=== PATIENT | female | born 1990 | race Hispanic/Latino ===

== ENCOUNTER 2017-01-04 19:52 | Emergency (ER) | payer OTHER ==
--- NOTE | 2017-01-04 20:13 | ED PDOC ---
"Arrival/HPI - General Chief Complaint: High Blood Sugar Time Seen by Provider: 01/04/17 20:03 Historian: Patient - History of Present Illness Narrative History of Present Illness (Text): 01/04/17 20:12 26 y/o female, pmh including dyspepsia/ovarian cyst, nkda, c/o abdominal pain with diarrhea x 2 days. Aching and cramping pain, burning sensation, admits had several episodes of watery diarrhea, no recent antibiotic use for the past 6 weeks, no headache or night sweat, no dizziness, no fatigue or lethargic, no rash, no other medical or psychological complaints. Past Medical History - Provider Review Nursing Documentation Reviewed: Yes - Infectious Disease Hx of Infectious Diseases: None - Reproductive Menopause: Yes - Cardiac Hx Hypertension: Yes - Pulmonary Hx Chronic Obstructive Pulmonary Disease (COPD): Yes - Endocrine/Metabolic Hx Diabetes Mellitus Type 1: Yes - Psychiatric Hx Emotional Abuse: No Hx Substance Use: No - Anesthesia Hx Anesthesia: No Family/Social History - Physician Review Nursing Documentation Reviewed: Yes Family/Social History: Unknown Family HX Smoking Status: Former Smoker Hx Alcohol Use: No Hx Substance Use: No Allergies/Home Meds Allergies/Adverse Reactions: Allergies No Known Allergies Allergy (Verified 09/19/16 11:42) Review of Systems - Review of Systems Constitutional: absent: Fatigue, Fevers Eyes: absent: Vision Changes ENT: absent: Hearing Changes Respiratory: absent: SOB, Cough Cardiovascular: absent: Chest Pain Gastrointestinal: Abdominal Pain, Diarrhea. absent: Constipation, Nausea, Vomiting Skin: absent: Rash, Pruritis, Skin Lesions Neurological: absent: Headache Physical Exam Vital Signs Reviewed: Yes Vital Signs Temp Pulse Resp BP Pulse Ox 01/04/17 21:19 98.1 F 75 16 102/61 100 01/04/17 19:55 98.7 F 78 18 113/75 98 Temperature: Afebrile Blood Pressure: Normal Pulse: Regular Respiratory Rate: Normal Appearance: Positive for: Well-Appearing, Non-Toxic, Comfortable Pain Distress: Mild Mental Status: Positive for: Alert and Oriented X 3 Finger Stick Blood Glucose: 500 - Systems Exam Head: Present: Atraumatic, Normocephalic Pupils: Present: PERRL Extroacular Muscles: Present: EOMI Conjunctiva: Present: Normal Mouth: Present: Moist Mucous Membranes Neck: Present: Normal Range of Motion Respiratory/Chest: Present: Clear to Auscultation, Good Air Exchange. No: Respiratory Distress, Accessory Muscle Use Cardiovascular: Present: Regular Rate and Rhythm, Normal S1, S2. No: Murmurs Abdomen: Present: Tenderness (epigastric and lower abdomen). No: Distention, Normal Bowel Sounds (hyperactive bowel sound), Peritoneal Signs, Rebound, Guarding Back: Present: Normal Inspection Upper Extremity: Present: Normal Inspection. No: Cyanosis, Edema Lower Extremity: Present: Normal Inspection. No: Edema Neurological: Present: GCS=15, Speech Normal Skin: Present: Warm, Dry, Normal Color. No: Rashes Psychiatric: Present: Alert, Oriented x 3, Normal Insight, Normal Concentration Medical Decision Making ED Course and Treatment: 01/04/17 20:13 -labs/ua -IVF/pepcid -CT abdomen and pelvis -Observe and reassess 01/04/17 22:50 -Labs show wbc 13.0 -UA show +UTI -CT abdomen and pelvis show colitis vs. underdistension with cholelithiasis, clinically concerning about colitis as she has elevation of wbc with abdominal tenderness. Negative galeano signs/ -Ciprofloxacin and flagyl ordered. I discussed with the patient about the side effect of fluoroquinolones will causes achilles tendon rupture, advised avoid gym/exercise, pt. verbally expressed understanding the risk and agreed to take the ciprofloxacin. -Discharge home with ciprofloxacin, flagyl, pepcid, stay hydrated, follow up with your own pmd and GI within 2 days, BRAT diet, non-dairy diet for 7 days, return to the ER for any new or worsening signs or symptoms. - Lab Interpretations Lab Results: 01/04/17 20:26 01/04/17 20:26 Lab Results 01/04/17 20:26: Sodium 140, Potassium 4.0, Chloride 100, Carbon Dioxide 27, Anion Gap 17, BUN 14, Creatinine 0.7, Est GFR ( Amer) > 60, Est GFR (Non- Af Amer) > 60, Random Glucose 83, Calcium 9.6, Total Bilirubin 1.2, AST 29, ALT 32, Alkaline Phosphatase 63, Total Protein 8.9 H, Albumin 4.9 H, Globulin 4.0, Albumin/Globulin Ratio 1.2, Lipase 58 01/04/17 20:26: Urine Color Yellow, Urine Appearance Clear, Urine pH 7.5, Ur Specific [place] 1.015, Urine Protein Trace H, Urine Glucose (UA) Negative, Urine Ketones Negative, Urine Blood Negative, Urine Nitrate Negative, Urine Bilirubin Negative, Urine Urobilinogen 1.0 H, Ur Leukocyte Esterase Trace H, Urine RBC Negative, Urine WBC 0 - 2, Ur Epithelial Cells 1 - 3, Urine Bacteria Few 01/04/17 20:26: WBC 13.0 H, RBC 4.82, Hgb 14.9, Hct 44.8, MCV 92.9, MCH 30.9, MCHC 33.3, RDW 13.2, Plt Count 347, MPV 10.7, Gran % 76.5 H, Lymph % (Auto) 17.1 L, [place] % (Auto) 6.0, Eos % (Auto) 0.2 L, Baso % (Auto) 0.2, Gran # 9.95 H , Lymph # 2.2, [place] # 0.8 H, Eos # 0.0, Baso # 0.03 I have reviewed the lab results: Yes Interpretation: Abnormal lab values (wbc 13.0 and UA show +UTI) - RAD Interpretation Radiology Orders: 01/04/17 20:55 ABD & PELVIS IV CONTRAST ONLY [CT] Stat FINDINGS: Lower thorax: No acute findings. ABDOMEN: Liver: Unremarkable. No mass. Gallbladder and bile ducts: Contracted gallbladder with probable stones. No ductal dilation. Pancreas: No ductal dilation. No mass. Spleen: No splenomegaly. Adrenals: No mass. Kidneys and ureters: No mass. No hydronephrosis. Stomach and bowel: Mild mural thickening vs underdistention of descending, sigmoid colon. No associated inflammatory stranding. No obstruction. Appendix: Normal caliber. No definite inflammation. PELVIS: Bladder: Unremarkable. ARI DOUGLASICA | Final Radiology Report CONFIDENTIALITY STATEMENT This report is intended only for use by the referring physician, and only in accordance with law. If you received this in error, call [phone]. Page 2 of 2 Reproductive: Small ovarian follicles. ABDOMEN and PELVIS: Intraperitoneal space: Trace free fluid within pelvis. No free air. Bones/joints: No acute fracture. Soft tissues: Unremarkable. Vasculature: Unremarkable. No aneurysm. Lymph nodes: No pathologically enlarged lymph nodes. IMPRESSION: 1. Mild colitis vs underdistention. Favor underdistention. Clinical correlation is needed. 2. Probable cholelithiasis. Consider ultrasound. 3. Incidental/non-acute findings are described above. Thank you for allowing us to participate in the care of your patient. Dictated and Authenticated by: Faizan Muñoz MD 01/04/2017 10:45 PM Eastern Time ([place] & [place]) [employer]: Radiologist - Medication Orders Current Medication Orders: Discontinued Medications Famotidine (Pepcid) 20 mg IVP STAT STA Stop: 01/04/17 20:56 Last Admin: 01/04/17 21:03 Dose: 20 mg Sodium Chloride (Sodium Chloride 0.9%) 1,000 mls @ 999 mls/hr IV .Q1H1M STA Stop: 01/04/17 21:55 Last Admin: 01/04/17 21:04 Dose: 999 mls/hr Iohexol (Omnipaque 350 100 Ml) Confirm Administered Dose 350 mg .ROUTE .STK-MED ONE Stop: 01/04/17 21:26 - PA / FILM RENTAL CLERK / Resident Statement / has reviewed & agrees with the documentation as recorded. Disposition/Present on Arrival - Present on Arrival Any Indicators Present on Arrival: No History of DVT/PE: No History of Uncontrolled Diabetes: No Urinary Catheter: No History of Decub. Ulcer: No History Surgical Site Infection Following: None - Disposition Have Diagnosis and Disposition been Completed?: Yes Diagnosis: UTI (urinary tract infection), Colitis Disposition: HOME/ ROUTINE Disposition Time: 22:54 Patient Plan: Discharge Patient Problems: Current Active Problems Problem Status Onset UTI (urinary tract infection) Acute Condition: IMPROVED Additional Instructions: Discharge home with ciprofloxacin, flagyl, pepcid, stay hydrated, follow up with your own pmd and GI within 2 days, BRAT diet, non-dairy diet for 7 days, return to the ER for any new or worsening signs or symptoms. Prescriptions: Ciprofloxacin [Cipro] 500 mg PO BID #16 tab Famotidine [Pepcid] 20 mg PO BID #20 tab Metronidazole [Flagyl] 500 mg PO TID #30 tab Referrals: Vanessa Wellington MD [Primary Care Provider] - Follow up with primary Shmuel Singletary MD [Medical Doctor] - Follow up with primary Forms: WORK NOTE"
[2017-01-04 20:17] VITALS: BMI 22.6
[2017-01-04 20:47] LABS: ADD MANUAL DIFF? NO
[2017-01-04 20:50] LABS: BASO # 0.03 K/mm3 (0.0-2.0); BASO % 0.2 % (0.0-3.0); EOS % 0.2 % (1.5-5.0); GRAN # 9.95 (1.4-6.5); GRAN % 76.5 % (50.0-68.0); HEMATOCRIT 44.8 % (36.0-48.0); LYMPH # 2.2 (1.2-3.4); LYMPH % 17.1 % (22.0-35.0); MEAN CELL VOLUME 92.9 fL (80.0-105.0); MEAN CORPUSCULAR HEMOGLOBIN 30.9 pg (25.0-35.0); MEAN CORPUSCULAR HGB CONC 33.3 g/dl (31.0-37.0); MEAN PLATELET VOLUME 10.7 fl (7.0-11.0); MONO # 0.8 (0.1-0.6); PH,URINE 7.5 (4.7-8.0); PLATELET COUNT 347 10^3/uL (120.0-450.0); RED CELL DISTRIBUTION WIDTH 13.2 % (11.5-14.5); URINE BILIRUBIN NEGATIVE (NEGATIVE); URINE BLOOD NEGATIVE (NEGATIVE); URINE GLUCOSE (UA) NEGATIVE (NEGATIVE); URINE KETONE NEGATIVE (NEGATIVE); URINE LEUKOCYTE ESTERASE TRACE Leu/uL (NEGATIVE); URINE PROTEIN TRACE mg/dL (<30 mg/dL)
[2017-01-04] MEDS ORDERED: Sodium Chloride 0.9% 1,000 ML IV STA (20:55)
[2017-01-04 20:57] LABS: URINE APPEARANCE CLEAR (CLEAR); URINE COLOR YELLOW (YELLOW)
[2017-01-04 21:01] LABS: ALB/GLOB RATIO 1.2 (1.1-1.8); ALKALINE PHOSPHATASE 63 U/L (38-133); ALT/SGPT 32 U/L (7-56); AST/SGOT 29 U/L (15-39); BILIRUBIN,TOTAL 1.2 mg/dL (0.2-1.3); BLOOD UREA NITROGEN 14 mg/dL (7-21); CALCIUM 9.6 mg/dL (8.4-10.5); CARBON DIOXIDE 27 mmol/L (21-33); CHLORIDE 100 mmol/L (98-107); GFR AFRICAN-AMERICAN > 60; GLUCOSE,RANDOM 83 mg/dL (70-110); SODIUM 140 mmol/L (132-148); TOTAL PROTEIN 8.9 g/dL (5.8-8.3)
[2017-01-04 21:22] VITALS: BP 102/61; PULSE 75; RESP 16; TEMP 98.1
[2017-01-04] MEDS ORDERED: Iohexol 350 MG/100 ML VIAL ONE (21:25)
[2017-01-04 21:37] LABS: URINE BACTERIA FEW (NEG); URINE RBC NEGATIVE /hpf (0-2); URINE WBC 0 - 2 /hpf (0-6)
[2017-01-04 22:13] LABS: LIPASE 58 U/L (23-300)
--- NOTE | 2017-01-04 22:45 | CT ---
EXAM: CT Abdomen and Pelvis With Intravenous Contrast CLINICAL HISTORY: 26 years old, female; Pain; Abdominal pain; Epigastric; Additional info: Abdominal pain and diarrhea TECHNIQUE: Axial computed tomography images of the abdomen and pelvis with intravenous contrast. This CT exam was performed using one or more of the following dose reduction techniques: automated exposure control, adjustment of the mA and/or kV according to patient size, and/or use of iterative reconstruction technique. Coronal and sagittal reformatted images were created and reviewed. CONTRAST: 95 mL of OMNI 350 administered intravenously. COMPARISON: No relevant prior studies available. FINDINGS: Lower thorax: No acute findings. ABDOMEN: Liver: Unremarkable. No mass. Gallbladder and bile ducts: Contracted gallbladder with probable stones. No ductal dilation. Pancreas: No ductal dilation. No mass. Spleen: No splenomegaly. Adrenals: No mass. Kidneys and ureters: No mass. No hydronephrosis. Stomach and bowel: Mild mural thickening vs underdistention of descending, sigmoid colon. No associated inflammatory stranding. No obstruction. Appendix: Normal caliber. No definite inflammation. PELVIS: Bladder: Unremarkable. Reproductive: Small ovarian follicles. ABDOMEN and PELVIS: Intraperitoneal space: Trace free fluid within pelvis. No free air. Bones/joints: No acute fracture. Soft tissues: Unremarkable. Vasculature: Unremarkable. No aneurysm. Lymph nodes: No pathologically enlarged lymph nodes. IMPRESSION: 1. Mild colitis vs underdistention. Favor underdistention. Clinical correlation is needed. 2. Probable cholelithiasis. Consider ultrasound. 3. Incidental/non-acute findings are described above.
[2017-01-04 23:24] VITALS: O2SAT 98
== END 2017-01-04 23:23 | disposition home or self-care (01) ==
LOC: ED 19:52
DX: K52.9 Noninfective gastroenteritis and colitis, unspecified (principal); N39.0 Urinary tract infection, site not specified; I10 Essential (primary) hypertension; Z87.891 Personal history of nicotine dependence
CPT/HCPCS: 74177; 80053; 81001; 83690; 85025; 96374; 99283; J7040; Q9967

== ENCOUNTER 2017-09-07 11:20 | Day surgery (SDC) | payer OTHER ==
[2017-09-04 12:56] VITALS: BMI 25.8
[2017-09-07] MEDS ORDERED: Propofol 10 mg/ml Inj (20 ML) ONE ×2 (13:16→13:38)
[2017-09-07] MEDS ORDERED: Sodium Chloride 0.9% 1,000 ML IV SCH (13:30)
[2017-09-07 13:40] VITALS: O2SAT 99
[2017-09-07 14:11] VITALS: TEMP 98.4
[2017-09-07 15:08] VITALS: BP 100/62; PULSE 72; RESP 16
== END 2017-09-07 15:11 | disposition home or self-care (01) ==
LOC: ENDO 11:20
PROVIDERS: ATTEND Internal Medicine
DX: K92.1 Melena (principal); K58.9 Irritable bowel syndrome, unspecified; K64.8 Other hemorrhoids; R19.4 Change in bowel habit
CPT/HCPCS: 45378; 84703; J2001; J2704; J7040 ×2